=== PATIENT | female | born 1980 | race Caucasian/White ===

== ENCOUNTER 2018-11-06 16:23 | Emergency (ER) | payer MEDICAID ==
[2018-11-06] MEDS ORDERED: Bupivacaine 0.5% 10 ML VIAL ONE (16:55)
[2018-11-06] MEDS ORDERED: Lidocaine 1% w/Epinephrine 1:100K 20 ML VIAL ONE (16:55)
== END 2018-11-06 17:25 | disposition home or self-care (01) ==
LOC: ERS 16:23
DX: K03.81 Cracked tooth (principal); K02.9 Dental caries, unspecified
CPT/HCPCS: 64400; J2001; J3490